=== PATIENT | male | born 2000 | race Caucasian/White ===

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

== ENCOUNTER 2018-01-24 08:25 | Emergency (ER) | payer OTHER ==
[~2018-01-24] VITALS: Ht 177.8 cm; Wt 102.3 kg
[2018-01-24 08:27] VITALS: BP 123/71; TEMP 97.5
[2018-01-24] MEDS ORDERED: VYVANSE50 MG PO (08:31)
[2018-01-24] MEDS ORDERED: PROZAC40 MG PO (08:32)
[2018-01-24 09:14] LABS: BASO # 0.1 (0.0-0.2); BASO % 0.6 % (0.0-2.0); EOS # 0.7 (0.0-0.7); EOS % 7.9 % (0-4.0); GRAN # 4.8 (1.4-6.5); GRAN % 55.7 % (42.2-75.2); HEMOGLOBIN 13.8 g/dl (12.5-16.1); LYMPH # 2.2 (1.2-3.4); LYMPH % 25.4 % (20.0-51.0); MEAN CELL VOLUME 87 fl (80.0-95.0); MEAN CORPUSCULAR HEMOGLOBIN 28 pg (26.0-32.0); MEAN CORPUSCULAR HGB CONC 32 g/dl (33.0-37.0); MEAN PLATELET VOLUME 9.9 fl (7.4-10.4); MONO # 0.9 (0.1-0.6); MONO % 10.1 % (1.7-9.3); PLATELET COUNT 316 K/mm3 (130-400); RED BLOOD COUNT 4.96 M/mm3 (4.20-5.60); REDCELL DISTRIBUTION WIDTH-CV 13.5 % (11.5-14.5)
[2018-01-24 09:26] LABS: ALANINE AMINOTRANSFERASE 45 U/L (21-72); ALKALINE PHOSPHATASE 62 U/L (50-136); ANION GAP 7 mmol/L (7-16); AST,SGOT 31 U/L (15-37); BILIRUBIN,TOTAL 0.4 mg/dL (0.0-1.0); BLOOD UREA NITROGEN 18 mg/dL (9-20); C-REACTIVE PROTEIN < 0.5 mg/dL (0.0-0.9); CALCIUM 9.3 mg/dL (8.4-10.2); CARBON DIOXIDE 25 mmol/L (22-30); CHLORIDE 108 mmol/L (98-107); CREATININE, serum 0.83 mg/dL (0.66-1.25); GLUCOSE 106 mg/dL (74-106); POTASSIUM 4.2 mmol/L (3.4-5.0); SODIUM 139 mmol/L (137-145); TOTAL PROTEIN 7.1 gm/dL (6.4-8.2)
[2018-01-24 10:47] VITALS: PULSE 75
== END 2018-01-24 10:49 | disposition home or self-care (01) ==
LOC: COL.ER 08:25
PROVIDERS: Physician Assistant
DX: G43.909 Migraine, unspecified, not intractable, without status migrainosus (principal)
CPT/HCPCS: J0780; J1200; J1885; J2270; J2405; J2765; J7030

== ENCOUNTER → 2018-06-18 | Outpatient (CLI) | payer OTHER ==
[~2018-06-18] MED LIST: PROZAC40 MG PO; VYVANSE50 MG PO
[2018-06-18 14:15] LABS: BASO % 0.4 % (0.0-2.0); EOS # 0.4 (0.0-0.7); EOS % 6.1 % (0-4.0); GRAN # 4.2 (1.4-6.5); GRAN % 59.3 % (42.2-75.2); HEMATOCRIT 46.1 % (36.0-47.0); LYMPH # 1.4 (1.2-3.4); LYMPH % 19.7 % (20.0-51.0); MEAN CELL VOLUME 90 fl (80.0-95.0); MEAN CORPUSCULAR HEMOGLOBIN 29 pg (26.0-32.0); MEAN CORPUSCULAR HGB CONC 33 g/dl (33.0-37.0); MEAN PLATELET VOLUME 9.7 fl (7.4-10.4); MONO % 14.4 % (1.7-9.3); PLATELET COUNT 305 K/mm3 (130-400); RED BLOOD COUNT 5.13 M/mm3 (4.20-5.60); REDCELL DISTRIBUTION WIDTH-CV 13.3 % (11.5-14.5)
[2018-06-18 14:27] LABS: CREATININE, serum 0.82 (0.66-1.25)
[2018-06-18 14:28] LABS: ALBUMIN 4.3 gm/dL (3.5-5.0); BILIRUBIN,TOTAL 0.6 mg/dL (0.0-1.0); CALCIUM 9.6 mg/dL (8.4-10.2); POTASSIUM 4.3 mmol/L (3.4-5.0); TOTAL PROTEIN 7.7 gm/dL (6.4-8.2)
== END ==
LOC: COL.RAD 13:50
PROVIDERS: Physician Assistant Medical
DX: B27.90 Infectious mononucleosis, unspecified without complication (principal); K76.0 Fatty (change of) liver, not elsewhere classified; R10.2 Pelvic and perineal pain

== ENCOUNTER 2019-03-25 00:32 | Emergency (ER) | payer OTHER ==
[~2019-03-25] VITALS: Ht 177.8 cm; Wt 109.1 kg
[2019-03-25 00:38] VITALS: BP 125/76
[2019-03-25] MEDS ORDERED: SINGULAIR 110 MG/TAB PO (00:38)
[2019-03-25 03:05] VITALS: PULSE 72; TEMP 98.2
== END 2019-03-25 03:06 | disposition home or self-care (01) ==
LOC: COL.ER 00:32
DX: G43.909 Migraine, unspecified, not intractable, without status migrainosus (principal); J45.909 Unspecified asthma, uncomplicated; F32.9 Major depressive disorder, single episode, unspecified; F90.9 Attention-deficit hyperactivity disorder, unspecified type
CPT/HCPCS: J1200; J1885; J2765; J7030

== ENCOUNTER 2019-06-29 13:30 | Outpatient (RCR) | payer OTHER ==
[2019-04-22 14:36] VITALS: BP 115/77; PULSE 77; TEMP 97.9
--- NOTE | 2019-04-22 14:40 | NUR ---
Pt reports that he did not have a reaction with first shot and he does not want to stay for 30 minutes after this shot being his second shot.
[2019-05-17 13:44] VITALS: BP 117/77; PULSE 92; TEMP 98.2
[2019-05-31 13:58] VITALS: BP 133/84; PULSE 73; TEMP 98.1
--- NOTE | 2019-06-27 18:21 | NUR ---
LEFT MESSAGE IN REGARDS TO ID SCREENING. ENCOURAGED CALL BACK.
[~2019-06-29] VITALS: Ht 177.8 cm; Wt 117.5 kg
[~2019-06-29 13:30] MED LIST changes: +SINGULAIR 110 MG/TAB PO; +ZYRTEC 10MG10 MG PO
[2019-06-29 14:01] VITALS: BP 128/65; PULSE 92; TEMP 98.1
== END 2019-07-06 | disposition home or self-care (01) ==
LOC: EUO
DX: J45.40 Moderate persistent asthma, uncomplicated (principal); Z79.899 Other long term (current) drug therapy
CPT/HCPCS: J2357

== ENCOUNTER 2019-09-04 01:16 | Emergency (ER) | payer OTHER ==
[~2019-09-04] VITALS: Ht 177.8 cm; Wt 111.4 kg
[2019-09-04 01:23] VITALS: BP 125/72; TEMP 98
[2019-09-04 01:55] LABS: BASO # 0.1 (0.0-0.2); BASO % 0.6 % (0.0-2.0); EOS # 0.4 (0.0-0.7); EOS % 4.6 % (0-4.0); GRAN # 4.7 (1.4-6.5); GRAN % 57.9 % (42.2-75.2); HEMATOCRIT 46.3 % (42.0-52.0); HEMOGLOBIN 15.3 g/dl (13.5-18.0); LYMPH # 2.2 (1.2-3.4); LYMPH % 26.8 % (20.0-51.0); MEAN CELL VOLUME 90 fl (80.0-100.0); MEAN CORPUSCULAR HEMOGLOBIN 30 pg (27.0-31.0); MEAN CORPUSCULAR HGB CONC 33 g/dl (33.0-37.0); MEAN PLATELET VOLUME 10.3 fl (7.4-10.4); MONO # 0.8 (0.1-0.6); PLATELET COUNT 311 K/mm3 (130-400); RED BLOOD COUNT 5.17 M/mm3 (4.20-5.60); REDCELL DISTRIBUTION WIDTH-CV 12.6 % (11.5-14.5)
[2019-09-04 02:00] LABS: ALBUMIN 4.7 gm/dL (3.5-5.0); BILIRUBIN,TOTAL 0.4 mg/dL (0.0-1.0); CALCIUM 9.7 mg/dL (8.4-10.2); CREATININE, serum 0.96 (0.66-1.25); POTASSIUM 4.1 mmol/L (3.4-5.0); TOTAL PROTEIN 8.3 gm/dL (6.4-8.2)
[2019-09-04 02:03] LABS: COLLECTION METHOD CLEAN CATCH
[2019-09-04 02:17] LABS: MUCOUS Present /lpf; PH 7 (5-8); SQUAMOUS EPITHELIAL None Seen /hpf; URINE APPEARANCE Clear; URINE BACTERIA None Seen /hpf; URINE BILIRUBIN Negative (NEGATIVE); URINE BLOOD Negative (NEGATIVE); URINE COLOR Yellow; URINE GLUCOSE Negative (NEGATIVE); URINE KETONE Negative (NEGATIVE); URINE LEUKOCYTE ESTERASE Negative (NEGATIVE); URINE NITRATE Negative (NEGATIVE); URINE PROTEIN(semi-quant) Negative (NEGATIVE); URINE RBC 0-2 /hpf; URINE UROBILINOGEN Negative (NEGATIVE)
[2019-09-04] MEDS ORDERED: CEPHALEXIN500 M1 PO (03:27)
[2019-09-04 03:29] LABS: C-REACTIVE PROTEIN 0.6 mg/dL (0.0-0.9)
[2019-09-04 04:01] VITALS: PULSE 88
== END 2019-09-04 04:00 | disposition home or self-care (01) ==
LOC: COL.ER 01:16
PROVIDERS: Emergency Medicine
DX: I88.0 Nonspecific mesenteric lymphadenitis (principal)
CPT/HCPCS: J1885; J2405; J3010; J7030

== ENCOUNTER 2019-09-30 15:00 | Outpatient (RCR) | payer OTHER ==
[2019-07-15 16:37] VITALS: BP 115/60; PULSE 81; TEMP 98.4
[2019-07-27 14:35] VITALS: BP 108/71; PULSE 71; TEMP 98.2
[2019-08-10 14:00] VITALS: BP 126/76; PULSE 87; TEMP 98.3
[2019-08-24 11:43] VITALS: BP 129/69; PULSE 62; TEMP 98
[~2019-09-30] VITALS: Ht 177.8 cm; Wt 113.2 kg
[~2019-09-30 15:00] MED LIST changes: +CEPHALEXIN500 M1 PO
[2019-09-30 15:42] VITALS: BP 182/93; PULSE 101; TEMP 97.8
== END 2019-10-13 | disposition still patient (30) ==
LOC: EUO
DX: J45.40 Moderate persistent asthma, uncomplicated (principal); Z79.899 Other long term (current) drug therapy

== ENCOUNTER 2019-10-28 15:00 | Outpatient (RCR) | payer OTHER ==
[2019-10-14 15:24] VITALS: BP 119/78; PULSE 88; TEMP 98.4
--- NOTE | 2019-10-14 15:39 | NUR ---
Patient given medication then ambulated out of unit under own power with belongings in hand.
[~2019-10-28] VITALS: Ht 177.8 cm; Wt 107.0 kg
[2019-10-28 15:28] VITALS: BP 111/67; PULSE 73; TEMP 97.6
== END 2019-11-10 14:43 | disposition home or self-care (01) ==
LOC: EUO 15:00
DX: J45.40 Moderate persistent asthma, uncomplicated (principal); Z79.899 Other long term (current) drug therapy

== ENCOUNTER 2020-01-13 15:00 | Outpatient (RCR) | payer OTHER ==
[2019-11-11 17:08] VITALS: BP 125/73; PULSE 73; TEMP 98
[2019-11-25 15:31] VITALS: BP 136/75; PULSE 80; TEMP 98.3
[2019-12-09 15:28] VITALS: BP 120/76; PULSE 76; TEMP 98.7
[2019-12-30 15:15] VITALS: BP 139/80; PULSE 112; TEMP 99.1
[~2020-01-13] VITALS: Ht 177.8 cm; Wt 103.9 kg
--- NOTE | 2020-02-07 15:09 | NUR ---
Pt did not show for last apt.Notified pt.Per pt he is [place] of [place] until 02/27/20.Apt made for 02/29/20
== END 2020-02-07 15:10 | disposition home or self-care (01) ==
LOC: EUO 15:00
DX: J45.40 Moderate persistent asthma, uncomplicated (principal); Z79.899 Other long term (current) drug therapy

== ENCOUNTER 2020-04-02 15:30 | Outpatient (RCR) | payer OTHER ==
[2020-02-29 15:29] VITALS: BP 119/70; PULSE 79; TEMP 98.5
[2020-03-16 14:40] VITALS: BP 111/66; PULSE 93; TEMP 97.8
[~2020-04-02] VITALS: Ht 177.8 cm; Wt 107.0 kg
[2020-04-02 15:41] VITALS: BP 118/74; PULSE 104; TEMP 98.5
== END 2020-05-21 16:53 | disposition home or self-care (01) ==
LOC: EUO 15:30
DX: J45.40 Moderate persistent asthma, uncomplicated (principal); Z79.899 Other long term (current) drug therapy